=== PATIENT | female | born 1990 | race Hispanic/Latino ===

== ENCOUNTER 2018-02-14 19:13 | Inpatient (IN) | payer SELFPAY ==
[~2018-02-14] VITALS: Ht 160 cm; Wt 87.8 kg
[2018-02-14] MEDS ORDERED: FOSPHENYTOIN 50 MG/ML VIAL IV STA (19:42)
[2018-02-14] MEDS ORDERED: SODIUM CHLORIDE 0.9% 1000ML 1,000 ML IV SCH (19:45)
[2018-02-14 19:48] LABS: BASOPHILS % 0.4 % (0.0-1.0); EOSINOPHILS % 0.2 % (0.0-6.0); HEMATOCRIT 39.9 % (34.2-44.1); HEMOGLOBIN 13.6 g/dL (12.0-16.0); LYMPHOCYTES # (AUTO) 1.9 (1.0-3.2); LYMPHOCYTES % 20.6 % (18.0-39.1); MEAN CORPUSCULAR HEMOGLOBIN 29.2 pg (28-32); MEAN CORPUSCULAR HGB CONC 34.1 g/dL (31-35); MEAN CORPUSCULAR VOLUME 85.8 fL (81-99); MONOCYTES # (AUTO) 0.3 (0.2-0.8); MONOCYTES % 3.7 % (4.4-11.3); NEUTROPHILS # (AUTO) 6.9 (2.1-6.9); NEUTROPHILS % 74.8 % (38.7-80.0); PLATELET COUNT 257 x10e3/uL (140-360); RED BLOOD COUNT 4.65 x10e6/uL (3.6-5.1); RED CELL DISTRIBUTION WIDTH 12.9 % (11.7-14.4)
[2018-02-14 19:57] LABS: AMPHETAMINES SCREEN,URINE NEGATIVE (NEGATIVE); BENZODIAZEPINES SCREEN,URINE NEGATIVE (NEGATIVE); PHENCYCLIDINE SCREEN,URINE NEGATIVE (NEGATIVE)
[2018-02-14] MEDS ORDERED: FOSPHENYTOIN 1,000 MG in SODIUM CHLORIDE 0.9% 50ML 50 ML IV ONE (20:00)
[2018-02-14 20:02] LABS: ALANINE AMINOTRANSFERASE 24 IU/L (0-55); ALBUMIN/GLOBULIN RATIO 1.1 (0.8-2.0); ALKALINE PHOSPHATASE 123 IU/L (40-150); ANION GAP 14.1 mmol/L (8-16); BLOOD UREA NITROGEN < 5 mg/dL (7-26); CALCIUM 9.5 mg/dL (8.4-10.2); CARBON DIOXIDE 26 mmol/L (22-29); CHLORIDE 110 mmol/L (98-107); CREATINE KINASE 133 IU/L (29-168); CREATININE, SERUM 0.82 mg/dL (0.57-1.11); EST GLOMERULAR FILTRATION RATE > 60 ML/MIN (60-); GLUCOSE 134 mg/dL (74-118); POTASSIUM 3.1 mmol/L (3.5-5.1); SODIUM 147 mmol/L (136-145)
[2018-02-14 20:05] LABS: BUN/CREATININE RATIO 6 (6-25)
--- NOTE | 2018-02-14 20:18 | Diagnostic Imaging Report ---
EXAMINATION: CHEST SINGLE (PORTABLE) INDICATION: Seizure COMPARISON: None FINDINGS: TUBES and LINES: None. LUNGS: Lungs are well inflated. The patient is rotated to the right. There is minimal linear density in the lung bases which could be due to atelectasis. There is no evidence of pneumonia or pulmonary edema. PLEURA: No pleural effusion or pneumothorax. HEART AND MEDIASTINUM: The cardiomediastinal silhouette is unremarkable. BONES AND SOFT TISSUES: No acute osseous lesion. Soft tissues are unremarkable. UPPER ABDOMEN: No free air under the diaphragm. IMPRESSION: The patient is rotated to the right. There is minimal linear density in the lung bases which could be due to atelectasis. Signed by: Dr. Lex Carl M.D. on 02/14/2018 8:14 PM
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
[2018-02-14] MEDS ORDERED: POTASSIUM CHLORIDE 20 MEQ TAB CR PO STA (20:25)
[2018-02-14] MEDS ORDERED: no home meds (21:40)
[2018-02-14] MEDS ORDERED: LORAZEPAM INJ 2 MG/ML VIAL IV ONE (22:45)
[2018-02-14] MEDS ORDERED: HYDROCODONE/APAP 10MG-325MG TAB PO ONE (22:45)
[2018-02-14] MEDS ORDERED: MELOXICAM7.5 MG PO (22:57)
[2018-02-14] MEDS ORDERED: HYDROCODON-ACE1 EAC9 PO (22:57)
[2018-02-14] MEDS ORDERED: SOMA350 MG PO (22:57)
[2018-02-14] MEDS ORDERED: SODIUM CHLORIDE FLUSH 10 ML SYR INJ PRN (23:00)
[2018-02-14] MEDS ORDERED: KCL 20MEQ/.9 SOD CHL 1,000 ML IV ONE (23:00)
[2018-02-14] MEDS ORDERED: ONDANSETRON HCL INJ 2 MG/ML VIAL IV PRN (23:00)
[2018-02-14] MEDS: HYDROCODONE/APAP 10MG-325MG TAB PO SCH (23:00)
[2018-02-14 23:55] VITALS: BP 118/78
[2018-02-15] VITALS: BP 118/78
[2018-02-15] MEDS: LORAZEPAM INJ 2 MG/ML VIAL IV PRN ×4 (01:20→21:20)
[2018-02-15] MEDS: HYDROCODONE/APAP 10MG-325MG TAB PO SCH ×4 (02:09→22:15)
[2018-02-15 06:49] VITALS: BP 122/76
[2018-02-15 07:17] LABS: BASOPHILS % 0.5 % (0.0-1.0); EOSINOPHILS # (AUTO) 0.1 (0.0-0.4); EOSINOPHILS % 0.6 % (0.0-6.0); HEMOGLOBIN 12.4 g/dL (12.0-16.0); LYMPHOCYTES # (AUTO) 2.2 (1.0-3.2); LYMPHOCYTES % 26.9 % (18.0-39.1); MEAN CORPUSCULAR HEMOGLOBIN 29.3 pg (28-32); MEAN CORPUSCULAR HGB CONC 33.5 g/dL (31-35); MEAN CORPUSCULAR VOLUME 87.5 fL (81-99); MONOCYTES # (AUTO) 0.3 (0.2-0.8); MONOCYTES % 4.1 % (4.4-11.3); NEUTROPHILS # (AUTO) 5.4 (2.1-6.9); NEUTROPHILS % 67.7 % (38.7-80.0); PLATELET COUNT 202 x10e3/uL (140-360); RED BLOOD COUNT 4.23 x10e6/uL (3.6-5.1); RED CELL DISTRIBUTION WIDTH 13.1 % (11.7-14.4)
[2018-02-15 07:32] LABS: ALANINE AMINOTRANSFERASE 20 IU/L (0-55); ALBUMIN 3.4 g/dL (3.5-5.0); ALKALINE PHOSPHATASE 105 IU/L (40-150); BLOOD UREA NITROGEN < 5 mg/dL (7-26); CALCIUM 8.9 mg/dL (8.4-10.2); CARBON DIOXIDE 23 mmol/L (22-29); CHLORIDE 113 mmol/L (98-107); CREATININE, SERUM 0.75 mg/dL (0.57-1.11); EST GLOMERULAR FILTRATION RATE > 60 ML/MIN (60-); GLUCOSE 120 mg/dL (74-118); SODIUM 143 mmol/L (136-145)
[2018-02-15 07:33] LABS: BUN/CREATININE RATIO 7 (6-25)
[2018-02-15 08:00] VITALS: BP 121/83
[2018-02-15 11:57] VITALS: BP 122/93
[2018-02-15] MEDS ORDERED: ATIVAN1 MG PO (12:06)
[2018-02-15] MEDS ORDERED: HYDROCODONE/APAP 10MG-325MG TAB PO PRN (12:15)
[2018-02-15] MEDS: D5NS/KCL 20MEQ 1,000 ML IV SCH (13:21)
[2018-02-15 16:30] VITALS: BP 126/76
[2018-02-15] MEDS ORDERED: FAMOTIDINE 20 MG/2 ML VIAL IV SCH (17:00)
[2018-02-15] MEDS ORDERED: DIPHENHYDRAMINE HCL 25 MG CAP PO PRN (18:15)
[2018-02-15 20:00] VITALS: BP 114/64
[2018-02-16] VITALS: BP 115/83
[2018-02-16] MEDS: D5NS/KCL 20MEQ 1,000 ML IV SCH (00:30)
[2018-02-16 03:42] LABS: BASOPHILS # (AUTO) 0.1 (0.0-0.1); BASOPHILS % 0.7 % (0.0-1.0); EOSINOPHILS # (AUTO) 0.1 (0.0-0.4); EOSINOPHILS % 0.7 % (0.0-6.0); HEMATOCRIT 38.3 % (34.2-44.1); HEMOGLOBIN 12.9 g/dL (12.0-16.0); LYMPHOCYTES # (AUTO) 2.2 (1.0-3.2); LYMPHOCYTES % 28.2 % (18.0-39.1); MEAN CORPUSCULAR HEMOGLOBIN 29.2 pg (28-32); MEAN CORPUSCULAR HGB CONC 33.7 g/dL (31-35); MEAN CORPUSCULAR VOLUME 86.7 fL (81-99); MONOCYTES # (AUTO) 0.4 (0.2-0.8); MONOCYTES % 4.8 % (4.4-11.3); NEUTROPHILS % 65.5 % (38.7-80.0); PLATELET COUNT 194 x10e3/uL (140-360); RED BLOOD COUNT 4.42 x10e6/uL (3.6-5.1); RED CELL DISTRIBUTION WIDTH 13.1 % (11.7-14.4)
[2018-02-16 03:55] LABS: ANION GAP 13.8 mmol/L (8-16); BLOOD UREA NITROGEN < 5 mg/dL (7-26); CALCIUM 9.1 mg/dL (8.4-10.2); CARBON DIOXIDE 20 mmol/L (22-29); CHLORIDE 114 mmol/L (98-107); CREATININE, SERUM 0.72 mg/dL (0.57-1.11); EST GLOMERULAR FILTRATION RATE > 60 ML/MIN (60-); GLUCOSE 122 mg/dL (74-118); MAGNESIUM 2.2 MG/DL (1.3-2.1); POTASSIUM 3.8 mmol/L (3.5-5.1); SODIUM 144 mmol/L (136-145)
[2018-02-16 03:56] LABS: BUN/CREATININE RATIO 7 (6-25)
[2018-02-16 04:00] VITALS: BP 109/61
[2018-02-16] MEDS: LORAZEPAM INJ 2 MG/ML VIAL IV PRN (04:03)
[2018-02-16] MEDS: HYDROCODONE/APAP 10MG-325MG TAB PO SCH (06:28)
[2018-02-16] MEDS ORDERED: LOPERAMIDE HCL 2 MG CAP PO PRN (08:00)
[2018-02-16 08:43] VITALS: BP 146/66
[2018-02-16] MEDS ORDERED: IMODIUM2 MG PO (09:03)
[2018-02-16] MEDS ORDERED: NORCO 10-325 T1 EACH PO (09:03)
[2018-02-16] MEDS ORDERED: ZOFRAN ODT4 MG PO (09:13)
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
== END 2018-02-16 09:46 | disposition home or self-care (01) | DRG 897 ==
LOC: ER 19:13 → ERHOLD 23:03 → IMCU 02-15 06:29
PROVIDERS: ADMIT Internal Medicine; ATTEND Internal Medicine
DX: F11.23 Opioid dependence with withdrawal (principal); G40.89 Other seizures; E87.0 Hyperosmolality and hypernatremia; G40.509 Epileptic seizures related to external causes, not intractable, without status epilepticus; E87.6 Hypokalemia; R00.0 Tachycardia, unspecified; T40.1X1A Poisoning by heroin, accidental (unintentional), initial encounter
CPT/HCPCS: 36415; 70450; 71045; 80048; 80053; 80307; 80320; 81025; 82550; 82553; 83735; 84484; 85025; 93005; 96376; 99284; J2060; J2405; J7030; Q2009

== ENCOUNTER 2020-10-29 17:20 | Emergency (ER) | payer SELFPAY ==
[~2020-10-29] VITALS: Ht 160 cm; Wt 87.5 kg
[~2020-10-29 17:20] MED LIST: ATIVAN1 MG PO; HYDROCODON-ACE1 EAC9 PO; IMODIUM2 MG PO; MELOXICAM7.5 MG PO; NORCO 10-325 T1 EACH PO; SOMA350 MG PO; ZOFRAN ODT4 MG PO; no home meds
[2020-10-29] MEDS ORDERED: SODIUM CHLORIDE 0.9% 1000ML 1,000 ML IV ONE (17:30)
[2020-10-29] MEDS ORDERED: NALOXONE HCL 2MG/2 ML SYRINGE IV ONE (17:30)
[2020-10-29] MEDS ORDERED: ONDANSETRON HCL INJ 2MG/ML 2ML 2 MG/ML VIAL IV STA (17:31)
[2020-10-29] MEDS ORDERED: NALOXONE HCL INJ 0.4 MG/ML AMP ONE (17:35)
[2020-10-29 18:18] LABS: BASOPHILS % 0.5 % (0.0-1.0); EOSINOPHILS # (AUTO) 0.1 (0.0-0.4); EOSINOPHILS % 0.8 % (0.0-6.0); HEMATOCRIT 37.4 % (34.2-44.1); HEMOGLOBIN 12.5 g/dL (12.0-16.0); LYMPHOCYTES # (AUTO) 2.4 (1.0-3.2); LYMPHOCYTES % 28.7 % (18.0-39.1); MEAN CORPUSCULAR HGB CONC 33.4 g/dL (31-35); MEAN CORPUSCULAR VOLUME 83.9 fL (81-99); MONOCYTES # (AUTO) 0.4 (0.2-0.8); MONOCYTES % 4.6 % (4.4-11.3); NEUTROPHILS # (AUTO) 5.5 (2.1-6.9); PLATELET COUNT 219 x10e3/uL (140-360); RED BLOOD COUNT 4.46 x10e6/uL (3.6-5.1); RED CELL DISTRIBUTION WIDTH 14.4 % (11.7-14.4)
[2020-10-29 18:35] LABS: AMPHETAMINES SCREEN,URINE NEGATIVE (NEGATIVE); BENZODIAZEPINES SCREEN,URINE NEGATIVE (NEGATIVE); PHENCYCLIDINE SCREEN,URINE NEGATIVE (NEGATIVE)
[2020-10-29 18:36] LABS: CLARITY,URINE HAZY (CLEAR); COLOR,URINE YELLOW (YELLOW); LEUKOCYTE ESTERASE ,URINE SMALL (NEGATIVE); NITRITE,URINE NEGATIVE (NEGATIVE); PROTEIN,URINE DIPSTICK NEGATIVE (NEGATIVE)
[2020-10-29 18:37] LABS: BACTERIA,URINE FEW /HPF; EPITHELIAL CELLS,URINE FEW /LPF; KETONES,URINE 1+ (NEGATIVE); URINE UROBILINOGEN 0.2 mg/dL (0.2 - 1)
[2020-10-29 18:40] LABS: ALANINE AMINOTRANSFERASE 21 IU/L (0-55); ALBUMIN 3.7 g/dL (3.5-5.0); ALKALINE PHOSPHATASE 99 IU/L (40-150); ANION GAP 15.1 mmol/L (8-16); BLOOD UREA NITROGEN 12 mg/dL (7-26); BUN/CREATININE RATIO 14 (6-25); CALCIUM 8.7 mg/dL (8.4-10.2); CARBON DIOXIDE 23 mmol/L (22-29); CHLORIDE 105 mmol/L (98-107); CREATINE KINASE 475 IU/L (29-168); CREATININE, SERUM 0.84 mg/dL (0.57-1.11); EST GLOMERULAR FILTRATION RATE > 60 ML/MIN (60-); GLUCOSE 91 mg/dL (74-118); POTASSIUM 3.1 mmol/L (3.5-5.1); SODIUM 140 mmol/L (136-145)
== END 2020-10-29 19:46 | disposition home or self-care (01) ==
LOC: ER 17:29
DX: R41.82 Altered mental status, unspecified (principal); F11.10 Opioid abuse, uncomplicated; T40.2X1A Poisoning by other opioids, accidental (unintentional), initial encounter; N39.0 Urinary tract infection, site not specified; G40.909 Epilepsy, unspecified, not intractable, without status epilepticus; M54.9 Dorsalgia, unspecified; G89.29 Other chronic pain; F17.210 Nicotine dependence, cigarettes, uncomplicated
CPT/HCPCS: 36415; 51700; 70450; 80053; 80307; 80320; 80329; 81001; 82550; 82553; 84484; 84702; 85025; 93005; 99283; J2310; J2405; J7030